=== PATIENT | female | born 1965 | race Caucasian/White ===

== ENCOUNTER 2022-12-09 15:52 | Emergency (ER) | payer OTHER ==
[~2022-12-09] VITALS: Ht 167.6 cm; Wt 68.5 kg
[2022-12-09 16:20] VITALS: BP 150/96
== END 2022-12-09 18:31 | disposition home or self-care (01) ==
LOC: ER 15:52
DX: S39.012A Strain of muscle, fascia and tendon of lower back, initial encounter (principal); W01.0XXA Fall on same level from slipping, tripping and stumbling without subsequent striking against object, initial encounter; Y93.89 Activity, other specified; Y92.89 Other specified places as the place of occurrence of the external cause; Y99.8 Other external cause status
CPT/HCPCS: 72100; 72220